=== PATIENT | female | born 2000 | race Caucasian/White ===

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

== ENCOUNTER 2022-03-23 17:01 | Emergency (ER) | payer OTHER, SELFPAY ==
--- NOTE | ~2022-03-23 | CT_ITS ---
EXAMINATION: CT soft tissue neck w con DATE: 03/23/2022 20:51 INDICATION: TECHNIQUE: Computed tomography (CT) of the neck was performed with 75 mL Omnipaque-350 intravenous co ntrast. The dose-length product was 506.23 mGy-cm. COMPARISON: None FINDINGS: Prominent palatine tonsils, without striations or abscess. The thyroid gland is unremarkable. The submandibular and parotid glands are symmetric. The bilateral upper cervical chain lymph nodes are enlarged. The superior mediastinum is unremarkable. The airway is unremarkable. Parapharyngeal a nd pre-glottic fat planes are preserved. Arteries of the neck enhance normally. The orbits are unr emarkable. Visualized sinuses and mastoid air cells are well aerated. The lungs are clear. Rever gema of the cervical lordosis. IMPRESSION: No CT evidence of tonsillar abscess. Bilateral palatine tonsil enlargement. Bilateral upper cervical chain lymphadenopathy. Reviewed, dictated and finalized at location K. IMPRESSION: No CT evidence of tonsillar abscess. Bilateral palatine tonsil enlargement. Mert ateral upper cervical chain lymphadenopathy.
[2022-03-23 17:45] VITALS: BP 127/70; PULSE 102; RESP 16; TEMP 36.4; O2SAT 100
--- NOTE | 2022-03-23 19:26 | ED.GENADULT ---
HPI - General Adult General Chief complaint: Neck Pain/Injury Stated complaint: NEck Stiffness, Strep weeks ago Time Seen by Provider: 03/23/22 19:15 History of Present Illness HPI narrative: 21-year-old female presented to the emergency department for evaluation of persistent sore throat. Patient states approximately 2 weeks ago she completed a course of 10 days of antibiotics. She states she also completed a 5-day Medrol Dosepak. Patient did have follow-up with her primary care physician again today due to persistent swelling. Practitioner was concerned about the possibility of a peritonsillar abscess and she was referred to the emergency department for further work-up. Patient does also complain of right lateral neck pain due to the sore throat. Patient denies any history. Patient does have an IUD in place. Related Data Home Medications Medication Instructions Recorded Confirmed levonorgestrel 20 mcg/24 hours (8 1 device intrauterine ONCE 10/16/21 10/16/21 yrs) 52 mg intrauterine device (Mirena) Allergies Allergy/AdvReac Type Severity Reaction Status Date / Time cat dander Allergy Intermediate Redness of Verified 03/23/22 19:15 Skin pollen extracts Allergy Mild Hives Verified 03/23/22 19:15 Review of Systems Review of Systems: CONSTITUTIONAL: Denies fever, chills, or sweats. EYES: Denies visual changes, redness, or discharge. ENT: See HPI CARDIOVASCULAR: Denies chest pain, palpitations, or edema. RESPIRATORY: Denies cough or dyspnea. GASTROINTESTINAL: Denies abdominal pain, nausea, vomiting, or diarrhea. GENITOURINARY: Denies dysuria or hematuria. SKIN: Denies rash or itching. MUSCULOSKELETAL: Denies back pain, joint pain, or myalgia. NEUROLOGIC: Denies headache, numbness, or weakness. REPLACED BY [facility] Past Medical History Medical History High blood cholesterol History of COVID-19 Hyperlipidemia Surgical History Surgical History H/O gynecological procedure mirena insertion 09/18/2021 Family History Family History Father Type 1 diabetes Mother Factor V deficiency High cholesterol Grandparent Diabetes mellitus Grandparent Diabetes mellitus Grandparent CAD (coronary artery disease) Other Malignant neoplasm of prostate Social History Social History (Updated 10/16/21 @ 14:03 by Emmanuel Montes APRN) Smoking status: Never smoker Alcohol intake: never Substance use: never Gender identity (if verbalized by the patient): Female Exam Narrative: APPEARANCE: Well appearing, no pain, no distress, well-nourished. HEAD: normocephalic, atraumatic. EYES: PERRLA/EOMI, conjunctivae clear. NOSE: Normal no drainage THROAT: Bilateral tonsillar swelling. No exudate. No significant posterior pharynx swelling. Uvula is midline NECK: Supple. No adenopathy, no masses. RESPIRATORY: Airway patent, respirations nonlabored. Clear to auscultation bilaterally, no rales, rhonchi, wheezing. CARDIOVASCULAR: Regular rate and rhythm without murmurs rubs or gallops. ABDOMINAL: Soft, nontender, nondistended, normal bowel sounds MUSCULOSKELETAL: Moves all extremities. Strength/ROM intact, No edema, No calf tenderness. NEURO: Alert. Cranial nerves II through XII intact. Grossly intact SKIN: Warm, dry. Normal Color Course Course Emergency Course: CT scan showed evidence of tonsillitis but no peritonsillar abscess. Patient was treated with additional antibiotics and encouraged of close follow-up with primary care physician. Patient was educated on reasons to return to the emergency department. Questions and concerns were addressed. Vital Signs Vital signs: Vital Signs Temperature 97.6 F 03/23/22 17:45 Pulse Rate 102 H 03/23/22 17:45 Respiratory Rate 16 03/23/22 17:45 Blood Pressure 127/70 03/23/22 17:45 Pulse
[2022-03-23] MEDS: KETOROLAC 15 MG/ML VIAL (*BKC) IV PUSH (20:13)
[2022-03-23] MEDS: SODIUM CHLORIDE 0.9% IV 1,000 ML 999 ML IV CONT (20:13)
[2022-03-23 20:24] LABS: Basophils Absolute Auto 0.1 K/mm3 (0.0-0.1); Basophils Percent Auto 0.4 % (0.2-1.2); Eosinophils Absolute Auto 0.2 K/mm3 (0-0.3); Eosinophils Percent Auto 1.3 % (0-4.4); Hematocrit 42.3 % (37.0-47.0); Hemoglobin 13.5 g/dL (12.0-15.0); Immature Granulocyte Absolute 0.07 K/mm3 (0.00-0.031); Immature Granulocyte Percent A 0.5 % (0-0.5); Lymphocytes Absolute Auto 3.62 K/mm3 (0.9-3.2); Mean Corpuscular HGB Conc 31.9 g/dl (32-36); Mean Corpuscular Volume 87.8 fl (80-100); Mean Platelet Volume 10.4 fl (7.4-10.4); Monocytes Absolute Auto 0.7 K/mm3 (0.1-0.6); Monocytes Percent Auto 4.9 % (2.6-8.5); Neutrophils Absolute Auto 8.8 K/mm3 (1.3-6.7); Neutrophils Percent Auto 65.9 % (45.5-73.1); Platelet Count Result 298 k/mm3 (150-375); Red Blood Count 4.82 M/mm3 (4.2-5.4); Red Cell Distribution Width 13.7 % (11.5-14.5); White Blood Count 13.4 K/mm3 (4.5-10.0)
[2022-03-23 20:36] LABS: Alanine Aminotransferase 24 U/L (6-35); Albumin Level 4.8 g/dL (3.7-5.6); Alkaline Phosphatase 109 U/L (45-116); Anion Gap 15 mmol/L (8-16); Aspartate Amino Transferase 32 U/L (14-36); Bilirubin,Total 0.5 mg/dL (0.2-1.3); Blood Urea Nitrogen 9 mg/dL (8-21); Calcium 9.3 mg/dL (8.9-10.7); Carbon Dioxide 21 mmol/L (22-30); Chloride 101 mmol/L (98-107); Estimated CRCL calculation 140 ml/min; Estimated Glomerular Filt Rate > 60; Glucose 84 mg/dL (65-110); Potassium 3.7 mmol/L (3.4-5.0); Sodium 137 mmol/L (134-143)
[2022-03-23 20:41] LABS: Monoscreen Negative (Negative); Negative Monotest Control Negative (Negative); Positive Monotest Control Positive (Positive)
[2022-03-23 21:37] VITALS: BP 127/85; PULSE 91; RESP 18; TEMP 36.8; O2SAT 100
[2022-03-23] MEDS: CEFDINIR 300 MG CAPSULE PO (22:12)
== END 2022-03-23 22:39 | disposition home or self-care (01) ==
PROVIDERS: Emergency Medicine; Emergency Provider Emergency Medicine; PCP Pediatrics
DX: J03.90 Acute tonsillitis, unspecified (principal)
CPT/HCPCS: 36415; 70491; 80053; 85025; 86308; 96361; 96374; 99284; A9270; J1885; J7030; Q9967

== ENCOUNTER 2022-11-25 15:42 | Outpatient (CLI) | payer OTHER, SELFPAY ==
[2022-11-25 17:30] LABS: SARS-CoV-2 RNA PCR Negative (Negative)
[2022-11-25 17:55] LABS: Strep Group A RT-PCR NOT DETECTED (Negative)
== END 2022-11-25 15:43 | disposition home or self-care (01) ==
LOC: ANHLAB 15:43
PROVIDERS: PCP Family Medicine; Visit Provider Family Medicine
DX: J02.9 Acute pharyngitis, unspecified (principal); Z20.822 Contact with and (suspected) exposure to COVID-19
CPT/HCPCS: 87635; 87651

== ENCOUNTER 2025-06-10 14:28 | Emergency (ER) | payer OTHER, SELFPAY ==
--- NOTE | 2025-06-10 14:59 | ED.URI ---
HPI - URI/Sore Throat General Chief Complaint: Upper Respiratory Infection Stated Complaint: Cough Time Seen by Provider: 06/10/25 14:59 Source: patient and RN notes reviewed Mode of arrival: ambulatory Limitations: no limitations History of Present Illness HPI Narrative: 24-year-old female presents concern for cough, chest congestion, nasal congestion for 2 weeks. She reports she started running fever today. She reports symptoms seem to get worse over the weekend. She denies history of problems breathing MD elicited complaint: cough and nasal congestion Related Data Home Medications ?Medication ?Instructions ?Recorded ?Confirmed ?Last Taken ?Type levonorgestrel (Mirena) 1 device intrauterine ONCE 10/16/21 06/10/25 Unknown History Allergies Allergy/AdvReac Type Severity Reaction Status Date / Time cat dander Allergy Intermediate Redness of Verified 06/10/25 14:41 Skin pollen extracts Allergy Mild Hives Verified 06/10/25 14:41 red dye Allergy Mild Swelling Verified 06/10/25 14:41 Review of Systems Review of Systems: CONSTITUTIONAL: Denies malaise, chills, sweats. Reports fever. EYES: Denies visual changes, redness, or discharge. ENT: Reports rhinorrhea, congestion, sinus pain. Denies otalgia and sore throat. CARDIOVASCULAR: Denies chest pain, palpitations, or edema. RESPIRATORY: Reports cough and chest congestion. Denies dyspnea. GASTROINTESTINAL: Denies abdominal pain, nausea, vomiting, diarrhea SKIN: Denies rash or itching. MUSCULOSKELETAL: Denies myalgia. NEUROLOGIC: Denies headache. All systems reviewed & are unremarkable except as noted in HPI and below PMFSH Past Medical History Medical History (Updated 06/10/25 @ 15:03 by Donna Cruz APRN) Vaginal discharge Obesity Skin neoplasm Other viral warts Nondisplaced fracture of fifth right metatarsal bone History of COVID-19 Hyperlipidemia High blood cholesterol Surgical History Surgical History Hx of tonsillectomy (~2021) H/O gynecological procedure mirena insertion 09/18/2021 Family History Family History Father Type 1 diabetes Mother Factor V deficiency High cholesterol Grandparent Diabetes mellitus Grandparent Diabetes mellitus Grandparent CAD (coronary artery disease) Other Malignant neoplasm of prostate Social History Social History Smoking status: Never smoker Alcohol intake: current Alcohol use details: soically Substance use: never Substance use type: does not use Lack of Transportation: No Lack of Food: Never True Current Housing: I Have Housing Concerned About Future Housing: No Difficulty Paying Gas/Electric Bills: No Difficulty Paying for Meds: No Currently Unemployed: No Education: High School Diploma/GED Difficulty w/ Childcare or Family Care: No Living arrangements: with roommate(s) Occupation/Education: student Gender identity (if verbalized by the patient): Female Sexual Orientation (if Verbalized by the Patient): Straight or Heterosexual Comments At time of signature, agree with nursing past medical, surgical, social and family history. There is no relevant family history pertinent to the presenting complaint Exam Narrative: GENERAL: Well-appearing, well-nourished, and in no acute distress. HEAD: Normocephalic EYES: PERRLA, conjunctivae clear ENT: Nares clear, turbinates edematous and erythematous. Mucous membranes moist. TM pearly ramos with dull light reflex bilaterally; no tragal tenderness. Oropharynx not erythematous without lesions. Tonsils not enlarged and without exudate, no drooling, no hoarseness, no trismus, uvula midline. NECK: Supple. No lymphadenopathy CHEST: Clear to auscultation, breath sounds equal. No wheezing, rhonchi, rales, or stridor. No respiratory distress, speaks in full sentences. HEART: Regular rate and rhythm. No murmur heard. SKIN: Warm, dry, no rash. NEURO: Alert and oriented x3. PSYCH: Normal mood and affect Course Course Emergency Course: Patient is aware of diagnosis, understands and agrees to treatment plan. Anticipatory guidance given. Patient agrees to follow-up as directed and is aware of reasons to seek care at the emergency department. Portions of this record may have been created with voice recognition software Level of Care: [facility] Visit MDM Differential Diagnosis Differential Diagnosis: I evaluated this patient in the [facility] care. History is obtained from patient who is an independent historian and physical exam was performed.? Available medical records were reviewed. ? Exam findings and relevant testing show no acute concerns or changes; patient is non-toxic appearing and is in no distress. ? Differential diagnosis considered: Roberto virus, strep pharyngitis, allergic rhinitis, upper respiratory tract infection, sinusitis, rhinosinusitis, nasopharyngitis. viral pharyngitis, otitis media, otitis externa, pneumonia, bronchitis, viral cough syndrome, viral syndrome, and influenza. Differential diagnosis and treatment plan were discussed with the patient. Patient agrees with discussion and after shared medical decision making agrees with plan of care. All questions were answered to the patient's satisfaction. Patient is appropriate for outpatient treatment and follow-up. Discharge Plan Discharge Clinical Impression: Bronchitis Patient Disposition: Home Condition: Stable Instructions: Acute Bronchitis (ED) Additional Instructions: Take medication as directed Recommend antihistamine such as Benadryl at night time and Zyrtec or Dana during the day Also, recommend symptomatic treatment includes: rest, fluids, and increase humidity of the air at home. Recommend Acetaminophen as directed on the bottle to reduce fever, pain, headache. Avoid smoking/second-hand smoke. Please schedule a follow-up visit with your personal physician for further evaluation and treatment within 3-5days. If your symptoms persist, change or worsen significantly before you can contact your personal physician then please, without delay, go to the emergency department for further evaluation. Patient Language: Turkish Prescriptions: New methylprednisolone [Medrol (Adryan)] 4 mg tablets,dose pack See Rx Instructions .ROUTE .COMPLEX Qty: 21 0RF Rx Instructions: orally per package directions amoxicillin-pot clavulanate 875-125 mg tablet 1 tablet PO Q12H 10 Days Qty: 20 0RF No Action Mirena 20 mcg/24 hours (7 yrs) 52 mg intrauterine device 1 device intrauterine ONCE Rx Instructions: as a single dose Follow-up/Referrals: Lukas Stark MD [Primary Care Provider, Family Practice] Stand Alone Forms: Work/School Release IP Time of Disposition: 15:06
== END 2025-06-10 15:08 | disposition home or self-care (01) ==
PROVIDERS: Emergency Provider Nurse Practitioner; PCP Family Medicine
DX: J40 Bronchitis, not specified as acute or chronic (principal); E78.00 Pure hypercholesterolemia, unspecified; E66.9 Obesity, unspecified; Z86.16 Personal history of COVID-19
CPT/HCPCS: 99213; G0463